=== PATIENT | male | born 1980 ===

== ENCOUNTER 2019-02-13 23:36 | Emergency (ER) | payer BC, OTHER ==
[2019-02-13 23:48] VITALS: TEMP 98.5
[2019-02-13] MEDS ORDERED: Sodium Chloride 0.9% 1,000 ML IV STA (23:53)
--- NOTE | 2019-02-13 23:53 | ED PDOC ---
Arrival/HPI - General Historian: Patient - History of Present Illness Narrative History of Present Illness (Text): 02/13/19 23:49 38 y/o male, no significant pmh, nkda, c/o lt. lower quadrant abdominal pain x 4 days. Pt. stated that he has LLQ pain for the past 4 days, associated feels hot/cold sensation for the past 3 days, no URI symptoms, no nausea/vomiting/diarrhea, no dizziness, afebrile in the ER. <Carson Mason - Last Filed: 02/14/19 01:39> Past Medical History - Provider Review Nursing Documentation Reviewed: Yes <Carson Mason - Last Filed: 02/14/19 01:39> Family/Social History - Physician Review Nursing Documentation Reviewed: Yes Family/Social History: Unknown Family HX <Carson Mason - Last Filed: 02/14/19 01:39> Allergies/Home Meds <Carson Mason - Last Filed: 02/14/19 01:39> <Avery Mendez - Last Filed: 02/14/19 05:32> Allergies/Adverse Reactions: Allergies No Known Allergies Allergy (Verified 02/13/19 23:48) Review of Systems - Review of Systems Constitutional: absent: Fatigue, Fevers Eyes: absent: Vision Changes ENT: absent: Hearing Changes Respiratory: absent: SOB, Cough Cardiovascular: absent: Chest Pain, Syncope Gastrointestinal: Abdominal Pain. absent: Diarrhea, Nausea, Vomiting Skin: absent: Rash, Pruritis Psychiatric: absent: Anxiety, Depression, Suicidal Ideation <Carson Mason - Last Filed: 02/14/19 01:39> Physical Exam Vital Signs Reviewed: Yes Temperature: Afebrile Blood Pressure: Hypertensive Pulse: Regular Respiratory Rate: Normal Appearance: Positive for: Well-Appearing, Non-Toxic, Comfortable Pain Distress: Moderate Mental Status: Positive for: Alert and Oriented X 3 - Systems Exam Head: Present: Atraumatic, Normocephalic Pupils: Present: PERRL Extroacular Muscles: Present: EOMI Conjunctiva: Present: Normal Mouth: Present: Moist Mucous Membranes Neck: Present: Normal Range of Motion Respiratory/Chest: Present: Clear to Auscultation, Good Air Exchange. No: Re spiratory Distress, Accessory Muscle Use Cardiovascular: Present: Regular Rate and Rhythm, Normal S1, S2. No: Murmurs Abdomen: Present: Tenderness (LLQ), Normal Bowel Sounds. No: Distention, Peritoneal Signs, Rebound, Guarding, McBurney's Point Tender, Rovsing's Sign Present, Scars Back: Present: Normal Inspection Upper Extremity: Present: Normal Inspection. No: Cyanosis, Edema Lower Extremity: Present: Normal Inspection. No: Edema Neurological: Present: GCS=15, CN II-XII Intact, Speech Normal Skin: Present: Warm, Dry, Normal Color. No: Rashes Psychiatric: Present: Alert, Oriented x 3, Normal Insight, Normal Concentration <Carson Mason - Last Filed: 02/14/19 01:39> Vital Signs Temp Pulse Resp BP Pulse Ox 02/13/19 23:45 98.5 F 98 H 16 124/94 H 96 <Avery Mendez - Last Filed: 02/14/19 05:32> Medical Decision Making ED Course and Treatment: 02/13/19 23:56 -Labs -CT abdomen and pelvis -IVF/toradol/pepcid -Observe and reassess 02/14/19 01:08 -Labs are non-significant -UA show no UTI but mild hematuria -Pt. feels well, pain well controlled, pending CT 02/14/19 01:39 -Case discussed in detail including labs and sign out to Dr. Mendez, pending CT and he would continue the care. <Carson Mason - Last Filed: 02/14/19 01:39> - Lab Interpretations Lab Results: Total Bilirubin 0.7 mg/dL (0.2-1.3) 02/14/19 00:10 AST 52 U/L (17-59) 02/14/19 00:10 ALT 50 U/L (7-56) 02/14/19 00:10 Alkaline Phosphatase 83 U/L (38-126) 02/14/19 00:10 Total Protein 7.9 g/dL (5.8-8.3) 02/14/19 00:10 Albumin 4.5 g/dL (3.0-4.8) 02/14/19 00:10 Globulin 3.4 gm/dL 02/14/19 00:10 Albumin/Globulin Ratio 1.3 (1.1-1.8) 02/14/19 00:10 Lipase 84 U/L (23-300) 02/14/19 00:10 Urine Color Yellow (YELLOW) 02/14/19 00:10 Urine Appearance Clear (CLEAR) 02/14/19 00:10 Urine pH 8.5 (4.7-8.0) 02/14/19 00:10 Ur Specific [place] 1.015 (1.005-1.035) 02/14/19 00:10 Urine Protein Negative mg/dL (<30 mg/dL) 02/14/19 00:10 Urine Glucose (UA) Negative mg/dL (NEGATIVE) 02/14/19 00:10 Urine Ketones Negative mg/dL (NEGATIVE) 02/14/19 00:10 Urine Blood Small (NEGATIVE) H 02/14/19 00:10 Urine Nitrate Negative (NEGATIVE) 02/14/19 00:10 Urine Bilirubin Negative (NEGATIVE) 02/14/19 00:10 Urine Urobilinogen 4.0 E.U./dL (<1 E.U./dL) H 02/14/19 00:10 Ur Leukocyte Esterase Negative Rika/uL (NEGATIVE) 02/14/19 00:10 Urine RBC 2 - 5 /hpf (0-2) H 02/14/19 00:10 Urine WBC 0 - 2 /hpf (0-6) 02/14/19 00:10 Ur Epithelial Cells 0 - 2 /hpf (0-5) 02/14/19 00:10 Urine Bacteria Few /hpf (NONE) 02/14/19 00:10 - RAD Interpretation Narrative RAD Interpretations (Text): CT Abdomen and Pelvis: Chest: The visualized lung bases are clear. Abdomen: The liver, spleen, pancreas, kidneys, gallbladder, and adrenal glands are unremarkable. The aorta is within normal limits. There is no evidence of abdominal lymphadenopathy or ascites. There is moderate bowel wall thickening and fluid distention of the small bowel. Pelvis: The colon is unremarkable, with no obstructive or inflammatory changes. The appendix is normal. The urinary bladder is within normal limits. The other pelvic structures appear grossly intact. There is no evidence of pelvic lymphadenopathy or ascites. Bones: There are no suspicious osseous abnormalities seen. Impression: 1. Moderate enteritis. No evidence of bowel obstruction. 2. No evidence of hydronephrosis or nephrolithiasis. Electronically signed on Feb 14, 2019 2:03:02 AM EDT by: Albert Barahona M.D., M.B.A., Certified By [employer] Trained MRI and CT Specialist Radiology Orders: 02/13/19 23:53 ABD & PELVIS IV CONTRAST ONLY [CT] Stat Final Canoe Inspector: Radiologist - Medication Orders Current Medication Orders: Discontinued Medications Sodium Chloride (Sodium Chloride 0.9%) 1,000 mls @ 999 mls/hr IV .Q1H1M STA Stop: 02/14/19 00:53 Last Admin: 02/14/19 00:18 Dose: 999 mls/hr eMAR Start Stop Document 02/14/19 00:18 JOL (Rec: 02/14/19 00:[address] [id number] Intravenous Solution Start Date 02/14/19 Start Time 00:18 End Date 02/14/19 End time 01:19 Total Infusion Time 61 Ketorolac Tromethamine (Toradol) 30 mg IVP STAT STA Stop: 02/13/19 23:54 Last Admin: 02/14/19 00:18 Dose: 30 mg MAR Pain Assessment Document 02/14/19 00:18 JOL (Rec: 02/14/19 00:18 [id number] Pain Reassessment Is this a pain reassessment? No Sleep Is patient sleeping during reassessment? No Presence of Pain Presence of Pain Yes Location Left, Right or Bilateral Left Upper or Lower Lower Pain Location Body Site Abdomen Description Intensity of Pain at present 5 IVP Administration Document 02/14/19 00:18 JOL (Rec: 02/14/19 00:18 [id number] Charges for Administration # of IVP Administrations 1 <Avery Mendez - Last Filed: 02/14/19 05:32> - PA / LINING MARKER / Resident Statement ALTA has reviewed & agrees with the documentation as recorded. ALTA has examined the patient and agrees with the treatment plan. <Carson Mason - Last Filed: 02/14/19 01:39> - PA / LINING MARKER / Resident Statement ALTA has reviewed & agrees with the documentation as recorded. ALTA has examined the patient and agrees with the treatment plan. <Avery Mendez - Last Filed: 02/14/19 05:32> Disposition/Present on Arrival - Present on Arrival Any Indicators Present on Arrival: No History of DVT/PE: No History of Uncontrolled Diabetes: No Urinary Catheter: No History of Decub. Ulcer: No - Disposition Have Diagnosis and Disposition been Completed?: Yes Disposition Time: 01:40 <Carson Mason - Last Filed: 02/14/19 01:39> - Present on Arrival Any Indicators Present on Arrival: No - Disposition Have Diagnosis and Disposition been Completed?: Yes Disposition Time: 02:27 Patient Plan: Discharge <Avery Mendez - Last Filed: 02/14/19 05:32> - Disposition Diagnosis: Abdominal pain Disposition: HOME/ ROUTINE Condition: GOOD Discharge Instructions (ExitCare): Acute Abdomen (Belly Pain) Additional Instructions: Take meds as prescribed/start bland diet next few days/follow up with your doctor this week Prescriptions: Dicyclomine [Dicyclomine HCl] 10 mg PO QID PRN #12 cap PRN Reason: abdominal cramps Forms: [employer] ([place])
[2019-02-14 00:26] LABS: PH,URINE 8.5 (4.7-8.0); URINE BILIRUBIN NEGATIVE (NEGATIVE); URINE BLOOD SMALL (NEGATIVE); URINE GLUCOSE (UA) NEGATIVE (NEGATIVE); URINE LEUKOCYTE ESTERASE NEGATIVE Leu/uL (NEGATIVE); URINE PROTEIN NEGATIVE mg/dL (<30 mg/dL)
[2019-02-14 00:35] LABS: BASO # 0.02 K/mm3 (0.0-2.0); BASO % 0.4 % (0.0-3.0); EOS % 0.6 % (1.5-5.0); HEMOGLOBIN 14.7 g/dL (14.0-18.0); LYMPH % 21.1 % (22.0-35.0); MEAN CELL VOLUME 92.2 fl (80.0-105.0); MEAN CORPUSCULAR HEMOGLOBIN 32.6 pg (25.0-35.0); MEAN CORPUSCULAR HGB CONC 35.3 g/dl (31.0-37.0); MEAN PLATELET VOLUME 10.9 fl (7.0-11.0); MONO # 0.4 (0.1-0.6); MONO % 8.8 % (1.0-6.0); RBC 4.51 10^6/uL (3.5-6.1); WHITE BLOOD COUNT 4.9 10^3/uL (4.5-11.0)
[2019-02-14 00:41] LABS: URINE APPEARANCE CLEAR (CLEAR); URINE COLOR YELLOW (YELLOW)
[2019-02-14 00:42] LABS: ALB/GLOB RATIO 1.3 (1.1-1.8); ALBUMIN 4.5 g/dL (3.0-4.8); BLOOD UREA NITROGEN 10 mg/dL (7-21); CALCIUM 8.9 mg/dL (8.4-10.5); GFR NON-AFRICAN AMERICAN > 60; LIPASE 84 U/L (23-300)
[2019-02-14 00:49] LABS: URINE BACTERIA FEW /hpf; URINE EPITHELIAL CELLS 0 - 2 /hpf (0-5); URINE WBC 0 - 2 /hpf (0-6)
[2019-02-14] MEDS ORDERED: Iohexol 350 MG/100 ML VIAL ONE (00:58)
[2019-02-14 01:01] LABS: ALT/SGPT 50 U/L (7-56); AST/SGOT 52 U/L (17-59)
[2019-02-14 02:55] VITALS: BP 126/71; PULSE 84; RESP 17; O2SAT 98
--- NOTE | 2019-02-14 09:51 | CT ---
Date of service: 02/14/2019 PROCEDURE: CT Abdomen and Pelvis without intravenous contrast HISTORY: LLQ pain COMPARISON: None. TECHNIQUE: Without contrast.. Contrast dose: Radiation dose: Total exam DLP = 778.71 mGy-cm. This CT exam was performed using one or more of the following dose reduction techniques: Automated exposure control, adjustment of the mA and/or kV according to patient size, and/or use of iterative reconstruction technique. FINDINGS: LOWER THORAX: Unremarkable. LIVER: Unremarkable. No gross lesion or ductal dilatation. GALLBLADDER AND BILE DUCTS: Unremarkable. PANCREAS: Unremarkable. No gross lesion or ductal dilatation. SPLEEN: Unremarkable. ADRENALS: Unremarkable. No mass. KIDNEYS AND URETERS: Unremarkable. No hydronephrosis. No solid mass. VASCULATURE: Unremarkable. No aortic aneurysm. No aortic atherosclerotic calcification or mural plaque present. BOWEL: Unremarkable. No obstruction. No gross mural thickening. APPENDIX: Unremarkable. Normal appendix. There is an 8 mm calcification adjacent to the appendix which is probably a calcified lymph node. This does not appear to be within the lumen of the appendix. PERITONEUM: Unremarkable. No free fluid. No free air. LYMPH NODES: Unremarkable. No enlarged lymph nodes. BLADDER: Unremarkable. REPRODUCTIVE: Unremarkable. BONES: No acute fracture. OTHER FINDINGS: The report concurs with the preliminary [facility] report IMPRESSION: No acute intra-abdominal findings
== END 2019-02-14 02:35 | disposition home or self-care (01) ==
LOC: ED 23:36
DX: R10.32 Left lower quadrant pain (principal)
CPT/HCPCS: 74177; 80053; 81001; 83690; 85025; 96361; 96374; 99284; J1885; J7030; Q9967